=== PATIENT | female | born 1995 | race African-American/Black ===

== ENCOUNTER 2021-09-04 01:40 | Emergency (ER) | payer BC ==
[~2021-09-04] VITALS: Ht 162.6 cm; Wt 102.1 kg
[2021-09-04 02:41] VITALS: BP 170/94
== END 2021-09-04 02:41 | disposition home or self-care (01) ==
LOC: ER 01:40
DX: M79.675 Pain in left toe(s) (principal); Z71.1 Person with feared health complaint in whom no diagnosis is made